=== PATIENT | male | born 1970 | race African-American/Black ===

== ENCOUNTER 2021-05-29 01:52 | Day surgery (SDC) | payer BC, OTHER, SELFPAY ==
[2021-05-21 12:56] VITALS: BMI 37.4
--- NOTE | 2021-05-21 13:03 | PC.NURSE ---
Report to the Outpatient Waiting Room, entrance under the green pavilion located off [facility], at time 0600 on date 05/29/21. OR Time: 0730. - You and your visitor will be asked a series of questions to screen for COVID 19 for your protection. - A mask is required within the hospital. One visitor will be allowed to accompany the patient into the hospital. Patients visitor will be instructed to remain with patient at all times or leave the building. We will allow the visitor to come back to the postoperative area when patient is ready. Preoperative COVID Testing Requirements: No COVID Test needed if: (proof is required; if not received patient will have Rapid Test prior to entry) - Patient has received COVID Vaccine at least 14 days prior to procedure date or - Patient has positive COVID test result within last 90 days of surgery date. COVID Test needed if above criteria is not met Patients may have clear liquids (water, carbonated beverages, clear teas, apple juice) until 3 hours prior to surgery with a maximum of 20 ounces. - No food from midnight until time of surgery Take the following medications with a SIP of water the morning of surgery: NONE Medications to discontinue per physician: N/A Date to take last dose: N/A Please no make-up, nail monegasque, hairspray, perfume, deodorant, or body powder the day of surgery. No jewelry (including any body piercings) or valuables the day of surgery, leave them at home. Please take a shower or bath the night before, or the morning of, surgery with an antibacterial soap. Wear comfortable, loose fitting clothing. - Jewelry must be removed prior to entering the operating room. Rings and piercings that are not removed may be cut off. - The hospital will not accept responsibility for valuables. - Please leave all valuables, including medications, at home the day of surgery. If you are going home after surgery, a licensed contract driver must drive you home. - NO public transportation without another adult. - We recommend that an adult stay with you for 24 hours following discharge. - We also recommend that you do not drive, make important decision, drink alcoholic beverages, or take any drugs that were not prescribed by your health care provider for at least 24 hours after your discharge time. Follow any additional instructions given to you from your surgeon. Telephone instructions given to CHRISTA JIMENEZ and asked if any additional questions and then verbalized understanding. Patient advised to call surgeon office or pre surgery nurse liaison [phone] if any additional questions.
--- NOTE | 2021-05-29 07:14 | WPDHPUPDATE1 ---
History and Physical Update Update Date/Time: 05/29/21 07:14 History and Physical has been reviewed, including an updated exam of the patient. There are NO changes in the patient's condition. Risks, benefits, and alternatives have been discussed and questions answered. Patient agrees to proceed with procedure.
[2021-05-29 10:24] VITALS: BP 121/74; PULSE 54; RESP 16; TEMP 36.8; O2SAT 99
--- NOTE | 2021-05-29 10:41 | WPDANESEPPF ---
Anes - Initial Pre Proc Eval Procedure: Operation Date: 05/29/21 12:30 Proposed Procedures p Excision of Left Volar Wrist Ganglion Cyst - Andrzej Valentin MD Date/Time: 05/29/21 10:41 Surgeon: Andrzej Valentin MD Pre Op Diagnosis: left volar wrist ganglion cyst Patient Data Age: 51 Gender: M Height: 1.8 m Weight: 121.66 kg Allergies Allergy/AdvReac Type Severity Reaction Status Date / Time No Known Allergies Allergy Verified 05/29/21 10:36 Home Medications Medication Instructions Recorded Confirmed Type No Home Medications 05/21/21 05/29/21 History Patient hx anesthesia problems: none Family hx anesthesia problems: none Results Review: All pre-operative results and documents have been reviewed as part of the pre-operative evaluation. [facility] Social History Social History Smoking packs per day: 1 Smoking cigarettes per day: 20.0 Years smoked: 20 Smoking pack-years: 20.00 Smoking status: Current every day smoker Tobacco type: cigarettes Alcohol intake: never Substance use: current Substance use type: marijuana Living arrangements: with family Spiritual care concerns: No Anes - Eval Final PreProcedure Day of Procedure 05/29/21 10:41 Patient weight: obese Heart: regular rate and rhythm Lungs: clear to auscultation and normal air movement Airway: Mallampati scale class II Neurological: alert and oriented Last oral intake: >/= 8 hours ASA classification: II Emergent: no Anesthetic plan: proceed Anesthesia type and monitoring: general GIVS and standard monitoring Results Review: All pre-operative results and documents have been reviewed as part of the pre-operative evaluation. Informed Consent: The patient's anesthetic plan and its attendant risks and benefits were discussed with the patient/family/POA. Questions were solicited and answers provided to the satisfaction of the patient/family/POA.
[2021-05-29] MEDS: LACTATED RINGERS 1,000 ML 30 ML IV CONT (10:52)
[2021-05-29] MEDS: BACITRACIN OINTMENT 15 GM TUBE 1 APPLIC TOPICAL (12:34)
[2021-05-29 13:05] VITALS: BP 110/71; PULSE 55; RESP 16; O2SAT 94
--- NOTE | 2021-05-29 13:20 | W.PM.PROC2 ---
Procedure Note - Detailed Date of Procedure 05/29/21 Pre-op Diagnosis left volar wrist ganglion cyst Post-op Diagnosis Same Procedure Performed Excision right volar wrist ganglion cyst Surgeon Andrzej Valentin MD Anesthesia MAC Findings Thick walled, chronic ganglion cyst. Description of Procedure The cyst was easily identified was marked with the patient's consent in the holding area. He was taken to the operating room where he was placed supine on the operating table. A time-out was held and confirmed. He was given IV sedation. The extremity was prepped and draped in usual fashion. The dog leg incision was made over the mass and this area infiltrated with 1% lidocaine with epinephrine. The tourniquet was inflated to 250 mmHg. The incision was made as marked and dissection was carried through the subcu tissue to the glistening smooth ganglion cyst. This was noted to be very thick walled and have multiple saunders attachments to various tissues. Time was taken to carefully dissect this is a was sharp and blunt dissection. The radial artery was not plastered to this mass. A not sure we saw the radial artery. We were very careful to avoid cutting vascular structures. The mass was dissected down to its base near the radial carpal joint and amputated. The base was cauterized. The tourniquet was released and we observed for significant bleeding. There was very little. We held pressure on that for about 3 minutes and then proceeded with closure. Closure was done with 4-0 Monocryl suture approximating the subcutaneous tissue and the dermis with buried sutures. The usual bandage was applied the tourniquet had already been release he is discharge instructions wound care and follow-up he has a prescription for hydrocodone number 7 Estimated Blood Loss 2 Tourniquet Time 18 Drains No Packing No Pathology None sent Complications No immediate complications Disposition Same day
[2021-05-29 13:35] VITALS: BP 111/68; PULSE 52; RESP 18; O2SAT 98
[2021-05-29] MEDS: ACETAMINOPHEN 500 MG TABLET 1000 MG PO (13:57)
[2021-05-29 14:05] VITALS: BP 110/68; PULSE 54; RESP 18
--- NOTE | 2021-05-29 14:15 | SUR.PHASEII ---
PATIENT RECEPTIVE TO TEACHING, BUT POOR RECALL. ENCOURAGED PATIENT TO REFER TO DISCHARGE PACKET AND CALL OFFICE WITH ANY QUESTIONS. SPOKE TO ON PHONE. PATIENT REPEATED BACK WOUND CARE INSTRUCTIONS AND HOW TO TAKE PAIN MEDICINE.
== END 2021-05-29 14:21 | disposition home or self-care (01) ==
PROVIDERS: PCP Internal Medicine Infectious Disease; Visit Provider Plastic Surgery
PROC: (CPT 25111; principal; 2021-05-29 12:30)
DX: M67.432 Ganglion, left wrist (principal); F17.210 Nicotine dependence, cigarettes, uncomplicated; F12.90 Cannabis use, unspecified, uncomplicated; E66.9 Obesity, unspecified; Z68.36 Body mass index [BMI] 36.0-36.9, adult
CPT/HCPCS: 25111; A9270; J1100; J2250; J2405; J2704; J3010; J7120

== ENCOUNTER 2022-11-27 15:53 | Emergency (ER) | payer OTHER, SELFPAY ==
--- NOTE | ~2022-11-27 | XR_ITS ---
EXAMINATION: XR chest 2V DATE: 11/27/2022 16:20 INDICATION: Chest pain. TECHNIQUE: Frontal and lateral views of the chest were obtained. COMPARISON: None. FINDINGS: There is no pneumonia, pleural effusion, or pneumothorax. The heart size is normal. IMPRESSION: 1. No acute cardiopulmonary disease. Reviewed, dictated and finalized at location A.
--- NOTE | 2022-11-27 16:00 | ECG_ITS ---
Measurements Intervals [place] Rate: 66 P: 50 NC: 163 QRS: 52 QRSD: 90 T: 57 QT: 382 QTc: 403 Interpretive Statements SINUS RHYTHM EARLY PRECORDIAL R/S TRANSITION BORDERLINE ECG NO PREVIOUS ECG AVAILABLE FOR COMPARISON Electronically Signed On 11-27-2022 16:09:23 CDT by Nikolai Howell D.O.
[2022-11-27 16:09] VITALS: BP 122/69; PULSE 70; RESP 18; TEMP 36.5; O2SAT 97
[2022-11-27 16:16] LABS: Basophils Absolute Auto 0.1 K/mm3 (0.0-0.1); Basophils Percent Auto 0.7 % (0.2-1.2); Eosinophils Absolute Auto 0.3 K/mm3 (0-0.3); Eosinophils Percent Auto 3.3 % (0-4.4); Hematocrit 44.1 % (42.0-52.0); Hemoglobin 14.8 g/dL (14.0-18.0); Immature Granulocyte Absolute 0.03 K/mm3 (0.00-0.031); Immature Granulocyte Percent A 0.3 % (0-0.5); Lymphocytes Absolute Auto 3.16 K/mm3 (0.9-3.2); Lymphocytes Percent Auto 32.7 % (18.3-44.2); Mean Corpuscular HGB Conc 33.6 g/dl (32-36); Mean Corpuscular Hemoglobin 30.5 pg (26-34); Mean Corpuscular Volume 90.7 fl (80-100); Mean Platelet Volume 10.3 fl (7.4-10.4); Monocytes Absolute Auto 0.8 K/mm3 (0.1-0.6); Monocytes Percent Auto 7.9 % (2.6-8.5); Neutrophils Absolute Auto 5.3 K/mm3 (1.3-6.7); Neutrophils Percent Auto 55.1 % (45.5-73.1); Platelet Count Result 279 k/mm3 (150-375); Red Blood Count 4.86 M/mm3 (4.6-6.20); Red Cell Distribution Width 13.7 % (11.5-14.5); White Blood Count 9.7 K/mm3 (4.5-10.0)
[2022-11-27 16:27] LABS: Partial Thromboplastin Time 29.2 SECONDS (22.3-36.8); Prothrombin Time 13.2 Seconds (11.1-14.7)
[2022-11-27 16:30] LABS: Alanine Aminotransferase 30 U/L (6-50); Alkaline Phosphatase 62 U/L (38-126); Anion Gap 11 mmol/L (8-16); Aspartate Amino Transferase 30 U/L (17-59); Bilirubin,Total 0.6 mg/dL (0.2-1.3); Blood Urea Nitrogen 15 mg/dL (9-20); Calcium 8.8 mg/dL (8.4-10.2); Carbon Dioxide 22 mmol/L (22-30); Chloride 108 mmol/L (98-107); Estimated CRCL calculation 94 ml/min; Estimated Glomerular Filt Rate > 60; Glucose 111 mg/dL (65-110); Lipase 87 U/L (23-300); Potassium 3.7 mmol/L (3.4-5.0); Sodium 141 mmol/L (137-145)
[2022-11-27 16:41] LABS: Troponin I < 0.012 ng/mL (0.000-0.034)
--- NOTE | 2022-11-27 17:46 | PC.NURSE ---
Patient called to place in exam room without response.
== END 2022-11-27 18:55 | disposition left against medical advice (07) ==
PROVIDERS: Emergency Provider Emergency Medicine; PCP Internal Medicine Infectious Disease
DX: R07.9 Chest pain, unspecified (principal)
CPT/HCPCS: 36415; 71046; 80053; 83690; 84484; 85025; 85610; 85730; 93005; 99199